=== PATIENT | male | born 1980 | race Caucasian/White ===

== ENCOUNTER 2017-02-09 17:45 | Emergency (ER) | payer OTHER ==
[2017-02-09 18:23] VITALS: BP 109/71; PULSE 75; TEMP 98.9; BMI 22.7
--- NOTE | 2017-02-09 18:50 | PDOC ---
History of Present Illness - General History Source: Patient, Old Records Exam Limitations: No Limitations - History of Present Illness Initial Comments: 02/09/17 18:53 The patient is a 36 year old male with no significant past medical history who presents to the Emergency Department today with right elbow pain today. The patients pain is spontaneous and worse when gripping his right hand. The patient denies any injury mechanism resulting in his current pain. He has been taking tylenol for pain. 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 <Jacek Nicolas - Last Filed: 02/09/17 18:55> <Abilio Leyva - Last Filed: 02/09/17 19:02> - General Chief Complaint: Pain Stated Complaint: RIGHT ELBOW PAIN X 2 MONTHS Time Seen by Provider: 02/09/17 18:44 Past History <Jacek Nicolas - Last Filed: 02/09/17 18:55> - Psycho/Social/Smoking Cessation Hx Anxiety: No Suicidal Ideation: No Smoking History: Never smoked Hx Alcohol Use: Yes (SOCIAL) Drug/Substance Use Hx: No Substance Use Type: None <Abilio Leyva - Last Filed: 02/09/17 19:02> - Past Medical History Allergies/Adverse Reactions: Allergies Allergy/AdvReac Type Severity Reaction Status Date / Time No Known Allergies Allergy Verified 03/26/14 15:21 Home Medications: Ambulatory Orders NK [No Known Home Medication] 03/26/14 Review of Systems - Review of Systems Able to Perform ROS?: Yes Comments:: 02/09/17 18:53 CONSTITUTIONAL: Absent: Fever, Chills, Diaphoresis, Generalized Weakness, Malaise, Loss of Appetite HEENT: Absent: Rhinorrhea, Nasal Congestion, Throat Pain, Throat Swelling, Difficulty Swallowing, Mouth Swelling, Ear Pain, Eye Pain, Visual Changes CARDIOVASCULAR: Absent: Chest Pain, Syncope, Palpitations, Irregular Heart Rate, Lightheadedness , Peripheral Edema RESPIRATORY: Absent: Cough, Shortness of Breath, SOB with Exertion, Orthopnea, Wheezing, Stridor, Hemoptysis GASTROINTESTINAL: Absent: Abdominal pain, Abdominal Distension, Nausea, Vomiting, Diarrhea, Constipation, Melena, Hematochezia GENITOURINARY: Absent: Dysuria, Frequency, Urgency, Hesitancy, Flank Pain, Genital Pain MUSCULOSKELETAL: Present: Right elbow pain Absent: Myalgia, Arthralgia, Joint Swelling, Back pain, Neck Pain SKIN: Absent: Rash, Itching, Pallor HEMATOLOGIC/IMMUNOLOGIC: Absent: Easy Bleeding, Easy Bruising, Lymphadenopathy, Frequent infections ENDOCRINE: Absent: Unexplained Weight Gain, Unexplained Weight Loss, Heat Intolerance, Cold Intolerance NEUROLOGIC: Absent: Headache, Focal Weakness, Paresthesias, Vertigo, Lightheadedness, Unsteady Gait, Seizure, Mental Status Changes, Incontinence PSYCHIATRIC: Absent: Anxiety, Depression <Jacek Nicolas - Last Filed: 02/09/17 18:55> *Physical Exam - Vital Signs Last Vital Signs Temp Pulse Resp BP Pulse Ox 98.9 F 75 15 109/71 98 02/09/17 18:13 02/09/17 18:13 02/09/17 18:13 02/09/17 18:13 02/09/17 18:13 - Physical Exam Comments: 02/09/17 18:53 GENERAL: The patient is awake, alert, and fully oriented, in no acute distress. HEAD: Normal with no signs of trauma. EYES: Pupils equal, round and reactive to light, extraocular movements intact, sclera anicteric, conjunctiva clear. EXTREMITIES: (+) Tenderness over the lateral condyle of the right elbow, increased pain in the right elbow with hand grasp. Sensation, circulation, and pulse intact. No edema. NEUROLOGICAL: Normal speech, normal gait. PSYCH: Normal mood, normal affect. SKIN: Warm, Dry, normal turgor, no rashes or lesions noted. <Jacek Nicolas - Last Filed: 02/09/17 18:55> - Vital Signs Last Vital Signs Temp Pulse Resp BP Pulse Ox 98.9 F 75 15 109/71 98 02/09/17 18:13 02/09/17 18:13 02/09/17 18:13 02/09/17 18:13 02/09/17 18:13 <Abilio Leyva - Last Filed: 02/09/17 19:02> ED Treatment Course - RADIOLOGY Radiology Studies Ordered: Category Date Time Status ELBOW-RIGHT [RAD] Stat Radiology 02/09/17 18:46 Ordered <Abilio Leyva - Last Filed: 02/09/17 19:02> Medical Decision Making - Medical Decision Making 02/09/17 19:01 Patient presents with classic symptoms of tendinitis. He has tenderness along the lateral condyle of his right elbow. 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 There is no change in the skin. There is no change in strength or sensation. Circulation is normal. Impression: Classic tendinitis of the right elbow. Plan: X-ray ordered Patient endorsed to Dr. Nick Etienne at change of shift pending x-ray. <Abilio Leyva - Last Filed: 02/09/17 19:02> *DC/Admit/Observation/Transfer - Attestations Scribe Attestion: 02/09/17 18:53 Documentation prepared by Jacek Nicolas, acting as medical director of hospice for Abilio Leyva MD. <Jacek Nicolas - Last Filed: 02/09/17 18:55> <Abilio Leyva - Last Filed: 02/09/17 19:02> Diagnosis at time of Disposition: Tendinitis of right elbow - Discharge Dispostion Condition at time of disposition: Good
--- NOTE | 2017-02-09 20:05 | PDOC ---
*Physical Exam - Vital Signs Last Vital Signs Temp Pulse Resp BP Pulse Ox 98.9 F 75 15 109/71 98 02/09/17 18:13 02/09/17 18:13 02/09/17 18:13 02/09/17 18:13 02/09/17 18:13 Medical Decision Making - Medical Decision Making 02/09/17 20:01 Sign-out received from outgoing Emergency Physician Dr. Leyva Pt interviewed and examined Ancillary studies reviewed Case discussed in detail with oncoming Emergency Physician including history, physical exam and ancillary studies. Vital Signs Temp Pulse Resp BP Pulse Ox 98.9 F 75 15 109/71 98 02/09/17 18:13 02/09/17 18:13 02/09/17 18:13 02/09/17 18:13 02/09/17 18:13 36-year-old male with persistent several months worth of right elbow pain particularly with flexion and extension. X-ray reviewed by me which demonstrates no acute findings. Pending official radiology read. I suspect the patient likely has tendinitis. We'll give her referral to orthopedics for physical therapy. We'll write prescription for naproxen. Ice, elevation. Patient verbalizes understanding agrees with plan. The patient was concerned as he has no insurance. I instructed the patient that we'll give referral to her services but in case he is unable to secure follow- up for insurance reasons, we'll give him a referral to [facility] and to [facility]. Patient verbalizes understanding agrees with plan. I discussed the physical exam findings, ancillary test results and final diagnoses with the patient. I answered all of the patient's questions. The patient was satisfied with the care received and felt comfortable with the discharge plan and treatment plan. The patient will call their primary care physician within 24 hours to arrange follow-up and will return to the Emergency Department with any new, persistant or worsening symptoms. *DC/Admit/Observation/Transfer Diagnosis at time of Disposition: Tendinitis of right elbow - Discharge Dispostion Disposition: HOME Condition at time of disposition: Good Admit: No - Prescriptions Prescriptions: Naproxen [Naprosyn -] 500 mg PO BID PRN #28 tablet PRN Reason: Elbow Pain - Referrals Referrals: Jc Devine MD [Staff Physician] - - Patient Instructions Printed Discharge Instructions: DI for Elbow Pain Additional Instructions: Please take 500 mg naproxen every 12 hours as needed for pain. Wear the SILVANO wrap for comfort. Elevate the arm and ice as needed. Please follow up with orthopedics. If you cannot obtain an appointment, please make an appointment at [facility] in [place] or [facility] in the [place]. Paperwork with the information will be given to you. Print Language: TELUGU
== END 2017-02-09 20:08 | disposition home or self-care (01) ==
LOC: FER 17:45
DX: M77.9 Enthesopathy, unspecified (principal)
CPT/HCPCS: 73070-TC-RT; 99282-25

== ENCOUNTER 2017-08-28 11:16 | Emergency (ER) | payer SELFPAY ==
[2017-08-28] MEDS ORDERED: hydrOXYzine HCL 25 MG TABLET (FP) PO ONE ×2 (11:21→11:29)
[2017-08-28 11:28] VITALS: BP 121/85; PULSE 83; TEMP 98.7; BMI 22.4
--- NOTE | 2017-08-28 11:28 | PDOC ---
History of Present Illness - General Chief Complaint: Itching Stated Complaint: ITCHING FOR 8 YEARS Time Seen by Provider: 08/28/17 11:21 - History of Present Illness Initial Comments: 08/28/17 11:23 36 M with no PMH presents to ER with rash x 8 years. Pt reports itching to his elbows, behind his knees, his groin, and the dorsum of his hands. Denies F/C. Denies painful lesions. Denies open sores or wounds. Denies any significant redness or warmth. States that the rash is often seasonal, worse in the winter and spring. He was seen for this by his PMD 2 years ago and prescribed hydrocortisone cream. However, it does not work for him. Past History - Past Medical History Allergies/Adverse Reactions: Allergies Allergy/AdvReac Type Severity Reaction Status Date / Time No Known Allergies Allergy Verified 08/28/17 11:21 Home Medications: Ambulatory Orders Hydroxyzine HCl [Atarax -] 25 mg PO TID PRN #21 tablet 08/28/17 - Suicide/Smoking/Psychosocial Hx Smoking History: Never smoked Hx Alcohol Use: Yes (SOCIAL) Drug/Substance Use Hx: No Substance Use Type: None Review of Systems - Review of Systems Comments:: 08/28/17 11:24 "GENERAL/CONSTITUTIONAL: No fever or chills. No weakness. HEAD, EYES, EARS, NOSE AND THROAT: No change in vision. No ear pain or discharge. No sore throat. CARDIOVASCULAR: No chest pain or shortness of breath. RESPIRATORY: No cough, wheezing, or hemoptysis. GASTROINTESTINAL: No nausea, vomiting, diarrhea or constipation. GENITOURINARY: No dysuria, frequency, or change in urination. MUSCULOSKELETAL: No joint or muscle swelling or pain. No neck or back pain. SKIN: + rash to hands, elbows, knees, groin NEUROLOGIC: No headache, vertigo, loss of consciousness, or change in strength/ sensation. ENDOCRINE: No increased thirst. No abnormal weight change. HEMATOLOGIC/LYMPHATIC: No anemia, easy bleeding, or history of blood clots. ALLERGIC/IMMUNOLOGIC: No hives or skin allergy. " *Physical Exam - Physical Exam Comments: 08/28/17 11:25 "GENERAL: Awake, alert, and fully oriented, in no acute distress HEAD: No signs of trauma EYES: PERRLA, EOMI, sclera anicteric, conjunctiva clear ENT: Auricles normal inspection, hearing grossly normal, nares patent, oropharynx clear without exudates. Moist mucosa NECK: Nontender, no stepoffs, Normal ROM, supple, no lymphadenopathy, JVD, or masses LUNGS: Breath sounds equal, clear to auscultation bilaterally. No wheezes, and no crackles HEART: Regular rate and rhythm, normal S1 and S2, no murmurs, rubs or gallops ABDOMEN: Soft, nontender, normoactive bowel sounds. No guarding, no rebound. No masses EXTREMITIES: Normal range of motion, no edema. No clubbing or cyanosis. No cords, erythema, or tenderness NEUROLOGICAL: Cranial nerves II through XII intact. 5/5 strength and sensation in all extremities, Normal speech, normal gait SKIN: pruritic rash to elbow creases, behind bilateral knees, groin folds, and dorsum of both hands with some scaling and dryness " Medical Decision Making - Medical Decision Making 08/28/17 11:26 36 M with pruritic rash x 8 years. Likely eczema. Pt with no infectious s/s. No evidence of fungal rash, no evidence of scabies or other parasite. - Antihistamines - Topical steroids - Moisturizer - Derm f/u I discussed the physical exam findings, ancillary test results and final diagnoses with the patient. I answered all of the patient's questions. The patient was satisfied with the care received and felt comfortable with the discharge plan and treatment plan. The patient agrees to follow up with the primary care physician within 24-72 hours. *DC/Admit/Observation/Transfer Diagnosis at time of Disposition: Eczema - Discharge Dispostion Disposition: HOME Condition at time of disposition: Stable - Prescriptions Prescriptions: Hydroxyzine HCl [Atarax -] 25 mg PO TID PRN #21 tablet PRN Reason: rash - Referrals Referrals: Sandra Sewell MD [Staff Physician] - - Patient Instructions Printed Discharge Instructions: DI for Atopic Dermatitis - Adult Additional Instructions: Continue using the steroid cream on your rash. Apply moisturizer twice a day to prevent dryness, which can worsen your rash. Take Hydroxyzine 3 times a day as needed for itching. Do not drive or operate heavy machinery when taking this, as it can cause drowsiness. Call the number provided to make an appointment with a occupational therapy professor. Print Language: ALBANIAN - Post Discharge Activity - Attestations Physician Attestion: 08/28/17 11:30 I, Dr. Avtar Norris MD, attest that this document has been prepared under my direction and personally reviewed by me in its entirety. I further attest, that it accurately reflects all work, treatment, procedures and medical decision -making performed by me.
== END 2017-08-28 11:40 | disposition home or self-care (01) ==
LOC: FER 11:16
DX: L30.9 Dermatitis, unspecified (principal)
CPT/HCPCS: 99281-25

== ENCOUNTER 2019-04-26 11:34 | Emergency (ER) | payer OTHER ==
[2019-04-26 11:45] VITALS: BP 112/72; PULSE 60; TEMP 97.9; BMI 21.9
[2019-04-26] MEDS ORDERED: KETOROLAC TROMETHAMINE 30 MG/1 ML VIAL IM ONE (12:19)
[2019-04-26] MEDS ORDERED: KETOROLAC TROMETHAMINE 30 MG/1 ML VIAL ONE (12:24)
--- NOTE | 2019-04-26 12:26 | PDOC ---
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 now has pain with going from sitting to standing and lying to sitting. no new numbness or weakness. no bowel or bladder incontinence. does have tingling in his great toe. no h/o back problesm no prior back surgeries. no f/c no urinar complaints. took aleve, last took last evening. no meds todayu prior to arrival. Past History - Past Medical History Allergies/Adverse Reactions: Allergies Allergy/AdvReac Type Severity Reaction Status Date / Time No Known Allergies Allergy Verified 08/28/17 11:21 Home Medications: Ambulatory Orders Diazepam [Valium] 5 mg PO Q8H PRN #15 tablet MDD 3 04/26/19 Ibuprofen [Motrin -] 600 mg PO TID PRN 3 Days #90 tablet 04/26/19 Naproxen Sodium [Aleve] 220 mg PO PRN 04/26/19 COPD: No - Psycho Social/Smoking Cessation Hx Smoking History: Never smoked Information on smoking cessation initiated: No Hx Alcohol Use: Yes (SOCIAL) Drug/Substance Use Hx: No Substance Use Type: None Review of Systems - Review of Systems Constitutional: No: Chills, Diaphoresis, Unexplained wgt Loss Respiratory: No: Cough, Orthopnea Cardiac (ROS): No: Chest Pain : No: Dysuria, Discharge Musculoskeletal: Yes: Back Pain All Other Systems: Reviewed and Negative *Physical Exam - Vital Signs Last Vital Signs Temp Pulse Resp BP Pulse Ox 97.9 F 60 16 112/72 98 04/26/19 11:35 04/26/19 11:35 04/26/19 11:35 04/26/19 11:35 04/26/19 11:35 - Physical Exam Comments: 04/26/19 12:21 awake alert lungs clear bilat heart rrr no mrg abd soft nt nd ext wwp. 5/5 lower extremity strength bilat. sensation intact bilat. no midline spinal tenderness. paraspinal spasm at lumbosacral region bilat. skin warm and dry. nuero alert oriented x 3. strength normal throughout. Medical Decision Making - Medical Decision Making 04/26/19 12:22 37 yo male low back strain while lifting. normal nuerological exam. plan nsaids , muscle relaxers. dc home fu pcp and physical therapy oujtpt. Discharge - Discharge Information Problems reviewed: Yes Clinical Impression/Diagnosis: Sciatica Condition: Improved Disposition: HOME - Admission No - Additional Discharge Information Prescription Drug Monitoring Program (I-STOP) results: I-STOP not reviewed - Follow up/Referral Referrals: Gilberto David MD [Staff Physician] - - Patient Discharge Instructions Patient Printed Discharge Instructions: Back Pain (Alternative Therapy) Additional Instructions: you can take motrin 600 mg every 8 hours as needed for pain. return for any problems or concerns. you can take valium 5 mg every 8 hours as needed to help muscle relaxation. do not drive after taking this medication. do not mix with alcohol. no heavy lifting for one week. discuss with your primary doctor regarding possible physical therapy referral. if you do not have a primary doctor you can follow up wtih the [facility]. see information for Dr Macias and call to schedule. Puede courtney motrin 600 mg cada 8 horas segn sea necesario para el dolor. Vuelva por cualquier problema o inquietud. puede courtney valium 5 mg cada 8 horas segn sea necesario para ayudar a la relajacin muscular. No conduzca despus de courtney lashell medicamento. No mezclar con alcohol. No levantar objetos pesados valerie sis semana. hable con lloyd mdico de cabecera sobre la posible derivacin a fisioterapia. Si no tiene un mdico primario, puede hacer un seguimiento con la clnica [facility]. consulte la informacin del Dr. Macias y radha para programar. Print Language: GREEK - Post Discharge Activity
== END 2019-04-26 12:37 | disposition home or self-care (01) ==
LOC: FER 11:34
PROC: 3E0233Z Introduction of Anti-inflammatory into Muscle, Percutaneous Approach (ICD-10-PCS; principal; 2019-04-26)
DX: M54.30 Sciatica, unspecified side (principal)
CPT/HCPCS: 99282-25

== ENCOUNTER 2019-08-04 16:49 | Emergency (ER) | payer OTHER ==
[2019-08-04 16:58] VITALS: BP 109/70; PULSE 84; TEMP 98.7; BMI 22.7
--- NOTE | 2019-08-04 18:25 | PDOC ---
History of Present Illness - General Chief Complaint: Cold Symptoms Stated Complaint: BODYACHES/FEVER Time Seen by Provider: 08/04/19 17:43 Past History - Past Medical History Allergies/Adverse Reactions: Allergies Allergy/AdvReac Type Severity Reaction Status Date / Time No Known Allergies Allergy Verified 08/04/19 16:58 Home Medications: Ambulatory Orders Diazepam [Valium] 5 mg PO Q8H PRN #15 tablet MDD 3 04/26/19 Ibuprofen [Motrin -] 600 mg PO TID PRN 3 Days #90 tablet 04/26/19 Naproxen Sodium [Aleve] 220 mg PO PRN 04/26/19 Ibuprofen 600 mg PO Q6H #30 tablet 08/04/19 Oseltamivir Phosphate [Tamiflu] 75 mg PO BID #10 capsule 08/04/19 COPD: No - Psycho Social/Smoking Cessation Hx Smoking History: Never smoked Hx Alcohol Use: Yes (SOCIAL) Drug/Substance Use Hx: No Substance Use Type: None *Physical Exam - Vital Signs Last Vital Signs Temp Pulse Resp BP Pulse Ox 98.7 F 84 18 109/70 100 08/04/19 16:55 08/04/19 16:55 08/04/19 16:55 08/04/19 16:55 08/04/19 16:55 Discharge - Discharge Information Problems reviewed: Yes Clinical Impression/Diagnosis: Flu-like symptoms Condition: Stable Disposition: HOME - Admission No - Follow up/Referral Referrals: Gilberto David MD [Staff Physician] - - Patient Discharge Instructions Patient Printed Discharge Instructions: DI for Influenza -- Adult Additional Instructions: You have the flu. This is a virus that will get better on its own in approximately 7-10 days. You will most likely have a fever for 7-10 days because of the flu. This is to be expected. Drink plenty of fluids to prevent dehydration and get plenty of rest. Warm tea and cough drops may help your symptoms as well. Take the tamiflu twice a day for 5 days to help reduce the symptoms of the flu. This medication will not cure the flu. Take Motrin as directed for pain and fever. Take all other medications as prescribed. Follow up with your primary care doctor this week Return to the ED for difficulty breathing, shortness of breath, weakness, or if you have any other changes in your symptoms. Tienes gripe. Milly es un virus que mejorar por s solo en aproximadamente 7-10 ventura. Lo ms probable es que tenga fiebre valerie 7-10 ventura debido a la gripe. [place] es de esperar. [place] muchos lquidos para prevenir la deshidratacin y descanse mucho. El t caliente y las gotas para la tos tambin pueden ayudar a los sntomas. [place] el tamiflu dos veces al da valerie 5 ventura para ayudar a reducir los sntomas de la gripe. Milly medicamento no curar la gripe. [place] Motrin anna se indica para el dolor y la fiebre. [place] todos los dems medicamentos segn lo prescrito. Haz un seguimiento con tu mdico de atencin primaria esta semana Regrese al ED para dificultad para respirar, dificultad para respirar, debilidad o si tiene otros cambios en los sntomas. - Post Discharge Activity Work/Back to School Note: Back to Work
== END 2019-08-04 18:30 | disposition home or self-care (01) ==
LOC: JERFT 16:49
DX: J11.1 Influenza due to unidentified influenza virus with other respiratory manifestations (principal)
CPT/HCPCS: 99281-25

== ENCOUNTER 2021-03-11 15:05 | Emergency (ER) | payer OTHER ==
[2021-03-11 15:16] VITALS: BP 107/66; PULSE 75; TEMP 98.4; BMI 22.7
[2021-03-11] MEDS ORDERED: DIPHTH,PERTUSS(ACELL),TET 0.5 ML DISP.SYRIN IM ONE ×2 (16:17→16:51)
[2021-03-11] MEDS ORDERED: CEPHALEXIN MONOHYDRATE 500 MG CAPSULE (UD) PO ONE (18:13)
[2021-03-11] MEDS ORDERED: CEPHALEXIN MONOHYDRATE 500 MG CAPSULE (UD) ONE (18:18)
== END 2021-03-11 18:30 | disposition home or self-care (01) ==
LOC: FER 15:05
PROC: 0HQFXZZ Repair Right Hand Skin, External Approach (ICD-10-PCS; principal; 2021-03-11)
DX: S61.215A Laceration without foreign body of left ring finger without damage to nail, initial encounter (principal); S61.226A Laceration with foreign body of right little finger without damage to nail, initial encounter; W26.0XXA Contact with knife, initial encounter
CPT/HCPCS: 12002-25; 73130-TC-RT-FY; 90471; 90715; 99284-25